=== PATIENT | female | born 1950 | race Native Hawaiian/Other Pacific Islander ===

== ENCOUNTER 2018-10-29 20:33 | Emergency (ER) | payer BC, MEDICARE ==
[2018-10-29 20:34] VITALS: BMI 21.9
[2018-10-29 21:10] VITALS: RESP 18
--- NOTE | 2018-10-29 21:18 | ED PDOC ---
Arrival/HPI - General Chief Complaint: Rib Injury Time Seen by Provider: 10/29/18 20:34 Historian: Patient, Family - History of Present Illness Narrative History of Present Illness (Text): 10/29/18 21:13 68 year old female, with past medical history of Alzheimer's and hyperlipidemia, presents to emergency department accompanied by daughter with complaints of left-sided rib pain following fall this morning. Patient reports experiencing dizziness after walking out of shower this morning and hitting left side of chest onto doorknob. No chest pain prior to fall. Patient denies any loss of consciousness, current dizziness, head impact, or being on blood thinners. Patient denies any shortness of breath, abdominal pain, nausea, vomiting, diarrhea, constipation, dark / bloody stool, or pain anywhere else in the body. Time/Duration: Other (this morning ) Symptom Onset: Gradual Symptom Course: Unchanged Activities at Onset: Light Context: Home Past Medical History - Provider Review Nursing Documentation Reviewed: Yes - Cardiac Hx Cardiac Disorders: Yes - Pulmonary Hx Respiratory Disorders: No - Neurological Hx Neurological Disorder: Yes Hx Dementia: Yes - HEENT Hx HEENT Disorder: No - Renal Hx Renal Disorder: No - Endocrine/Metabolic Hx Endocrine Disorders: No - Hematological/Oncological Hx Blood Disorders: Yes Hx Blood Transfusions: Yes - Integumentary Hx Dermatological Disorder: Yes Other/Comment: SKIN GRAFT L LEG - Musculoskeletal/Rheumatological Hx Musculoskeletal Disorders: Yes - Genitourinary/Gynecological Hx Genitourinary Disorders: No - Psychiatric Hx Psychophysiologic Disorder: Yes Hx Anxiety: Yes Hx Depression: Yes Hx Substance Use: No - Surgical History Other/Comment: SKIN GRAFT, CYST REMOVED FROM BREAST - Anesthesia Hx Anesthesia Reactions: No Hx Malignant Hyperthermia: No Family/Social History - Physician Review Nursing Documentation Reviewed: Yes Family/Social History: Unknown Family HX Smoking Status: Never Smoked Hx Alcohol Use: No Hx Substance Use: No Allergies/Home Meds Allergies/Adverse Reactions: Allergies amoxicillin trihydrate [From Augmentin] Allergy (Severe, Verified 10/29/18 20:40) RASH potassium clavulanate [From Augmentin] Allergy (Severe, Verified 10/29/18 20:40) RASH Home Medications: Home Meds Medication Instructions Recorded Confirmed Donepezil [Aricept] 10 mg PO QPM 06/09/16 10/29/18 Escitalopram [Lexapro] 10 mg PO DAILY 10/29/18 10/29/18 Esomeprazole Magnesium [Nexium] 40 mg PO DAILY 10/29/18 10/29/18 RX: Olanzapine [Zyprexa] 5 mg PO BID 10/29/18 10/29/18 Review of Systems - Physician Review All systems were reviewed & negative as marked: Yes - Review of Systems Constitutional: absent: Fatigue, Weight Change, Fevers Eyes: absent: Vision Changes, Photophobia, Eye Pain ENT: absent: Hearing Changes, Tinnitus, TMJ Pain Respiratory: absent: SOB, Cough Cardiovascular: absent: Chest Pain, Palpitations Gastrointestinal: absent: Abdominal Pain, Diarrhea, Nausea, Vomiting Genitourinary Female: absent: Dysuria, Frequency, Hematuria Musculoskeletal: Other (left-sided rib pain). absent: Back Pain, Neck Pain Skin: absent: Rash Neurological: absent: Headache, Dizziness Psychiatric: absent: Anxiety, Depression Physical Exam Vital Signs Reviewed: Yes Vital Signs Temp Pulse Resp BP Pulse Ox 10/29/18 20:49 98.3 F 62 18 142/63 98 Temperature: Afebrile Blood Pressure: Normal Pulse: Regular Respiratory Rate: Normal Appearance: Positive for: Well-Appearing, Non-Toxic, Comfortable Pain Distress: None Mental Status: Positive for: other (AOX2, baseline per family) - Systems Exam Head: Present: Atraumatic, Normocephalic. No: Tenderness, Laceration Pupils: Present: PERRL. No: Sluggish Extroacular Muscles: Present: EOMI. No: Gaze Palsy Conjunctiva: Present: Normal. No: Injected Ears: Present: Normal Mouth: Present: Moist Mucous Membranes Pharnyx: Present: Normal. No: ERYTHEMA, EXUDATE Nose (External): Present: Atraumatic Nose (Internal): Present: Normal Inspection, No Active Bleeding. No: Purulent Mucous, Septal Hematoma Neck: Present: Normal Range of Motion. No: Meningeal Signs, MIDLINE TENDERNESS Respiratory/Chest: Present: Clear to Auscultation, Good Air Exchange, Tender to Palpation (pinpoint tenderness to left rib. no LUQ abd pain). No: Respiratory Distress, Accessory Muscle Use Cardiovascular: Present: Regular Rate and Rhythm, Normal S1, S2. No: Murmurs Abdomen: Present: Normal Bowel Sounds. No: Tenderness, Distention, Peritoneal Signs, Rebound, McBurney's Point Tender, Rovsing's Sign Present Back: Present: Normal Inspection. No: CVA Tenderness, Midline Tenderness Upper Extremity: Present: Normal Inspection, NORMAL PULSES, Neurovascularly Intact. No: Cyanosis, Edema, Erythema Lower Extremity: Present: Normal Inspection, NORMAL PULSES, Neurovascularly Intact. No: Edema, Erythema Neurological: Present: GCS=15, CN II-XII Intact, Speech Normal, Motor Func Grossly Intact, Normal Cerebellar Funct Skin: Present: Warm, Dry, Normal Color. No: Rashes Psychiatric: Present: Alert, Normal Insight, Normal Concentration, Other (AOx2, her baseline) Medical Decision Making ED Course and Treatment: 10/29/18 21:21 Impression: 68 year old female presents to emergency department for left-sided rib pain following fall this morning. She notes dizziness after walking after the shower described as lightheadedness. No vertigo. No FND on exam. No worsening AMS per f amily. No meningeal signs. No current dizziness. Plan: -- CT Cervical Spine -- CT Head -- EKG -- Labs -- Tylenol -- X-ray left ribs -- Reassess and disposition Prior Visits: Notes and results from previous visits were reviewed. Progress Notes: 10/29/18 22:16 EKG: Ordered, reviewed, and independently interpreted the EKG. Rate : 64 BPM Rhythm : NSR Interpretation : No STEMI 10/29/18 23:08 CT Head, reviewed by radiologist: IMPRESSION: 1. No acute intracranial abnormality. 2. Mild age-appropriate diffuse cerebral/cerebellar atrophy. 3. Mild chronic microvascular disease. 4. Atherosclerotic vascular plaquing within the carotid siphons bilaterally. Electronically signed on Oct 29, 2018 10:11:12 PM EST by: German Fitzpatrick M.D., MBA Certified By [employer] & [employer] Fellowship Trained MRI and CT Specialist CT Cervical Spine, reviewed by radiologist: IMPRESSION: No acute cervical spine abnormality. Electronically signed on Oct 29, 2018 10:50:42 PM EST by: German Fitzpatrick M.D., MBA Certified By [employer]BR & [employer] Fellowship Trained MRI and CT Specialist X-ray left ribs, reviewed by radiologist: IMPRESSION: No visible acute rib fracture. No pneumothorax. Electronically signed on Oct 29, 2018 10:51:49 PM EST by: German Yuz, M.D., WANDER Certified By ABR & [employer] Fellowship Trained MRI and CT Specialist 10/29/18 23:28 Pending CTAP for mildly elevated lipase labs otherwise largely unremarkable. 10/30/18 00:34 CT Abdomen/Pelvis, reviewed by radiologist: IMPRESSION: 1. There are several small ground glass opacities in the right middle lobe. These could represent early infiltrates. Please correlate clinically and if indicated further evaluation could be obtained with dedicated chest CT. 2. Mild dependent atelectasis near both bases. 3. Diffuse fatty infiltration of liver. 4. The liver is enlarged measuring 20 cm craniocaudal. 5. Bladder is moderately distended. Please correlate clinically. 7. There is fecal impaction at the rectum measuring 8.5 x 9.1 cm on series 3, image 82. 8. There is constipation throughout the colon. Electronically signed on Oct 30, 2018 12:32:09 AM EST by: German Fitzpatrick M.D., WANDER Certified By ABR & [employer] Fellowship Trained MRI and CT Specialist 10/30/18 00:53 No urinary complaints. No suprapubic pain. abd remains non-ttp CAP possible, Florquinones / Zpack prolong QT, pt already on QT prolonging agent. Will rx with doxy. Reccomended OTC constipation agents, family agreeable - RAD Interpretation Radiology Orders: 10/29/18 21:00 CERVICAL SPINE W/O CONTRAST [CT] Stat RIBS LEFT & PA CHEST [RAD] Stat 10/29/18 21:11 HEAD W/O CONTRAST [CT] Stat - Medication Orders Current Medication Orders: Discontinued Medications Acetaminophen (Tylenol 325mg Tab) 650 mg PO STAT STA Stop: 10/29/18 21:03 - Scribe Statement The provider has reviewed the documentation as recorded by the Scribe Isaías Munoz All medical record entries made by the Scribe were at my direction and personally dictated by me. I have reviewed the chart and agree that the record accurately reflects my personal performance of the history, physical exam, medical decision making, and the department course for this patient. I have also personally directed, reviewed, and agree with the discharge instructions and disposition. Disposition/Present on Arrival - Present on Arrival Any Indicators Present on Arrival: No History of DVT/PE: No History of Uncontrolled Diabetes: No Urinary Catheter: No History of Decub. Ulcer: No History Surgical Site Infection Following: None - Disposition Have Diagnosis and Disposition been Completed?: Yes Diagnosis: Pneumonia, Constipation Disposition: HOME/ ROUTINE Disposition Time: 00:47 Condition: GOOD Discharge Instructions (ExitCare): Constipation, Adult (DC), Pneumonia, Adult (DC), Community-Acquired Pneumonia in Adults Additional Instructions: RETURN IF PAIN WORSENS OR CHANGES OR NOT IMPROVED WITH PAIN MEDICATIONS. RETURN IF ANY OTHER ISSUES. fOLLOWUP WITH YOUR PRIMARY CARE DOCTOR AND TAKE OVER THE COUNTER CONSTIPATION AGENTS TO HELP WITH YOUR CONSTIPATION. NADEEM GUNTER, thank you for letting us take care of you today. Your provider was Piyush Murry and you were treated for SIDE PAIN, RIB CAGE PROBLEM. The emergency medical care you received today was directed at your acute symptoms. If you were prescribed any medication, please fill it and take as directed. It may take several days for your symptoms to resolve. Return to the Emergency Department if your symptoms worsen, do not improve, or if you have any other problems. Please contact your doctor or call one of the physicians/clinics you have been referred to that are listed on the Patient Visit Information form that is included in your discharge packet. Bring any paperwork you were given at discharge with you along with any medications you are taking to your follow up visit. Our treatment cannot replace ongoing medical care by a primary care provider outside of the emergency department. Thank you for allowing the [facility] team to be part of your care today. If you had an X-Ray or CT scan: A Radiologist will review the ED reading if any change in treatment is needed we will contact you. If you had a blood, urine, or wound culture: It will take several days for the results, if any change in treatment is needed we will contact you. If you had an STI test: It will take 48 hours for the results. Please call after 1 week if you have not heard back. Prescriptions: RX: Doxycycline Hyclate 100 mg PO BID 10 Days #20 capsule Referrals: Jose Miguel Pierre MD [Staff Provider] - Follow up with primary Stephanie Ross MD [Medical Doctor] - Follow up with primary [facility] [Outside] - Follow up with primary [facility] [Outside] - Follow up with primary [facility] [Outside] - Follow up with primary Forms: [employer] [facility] ([place])
[2018-10-29 21:29] LABS: BASO # 0.02 K/mm3 (0.0-2.0); BASO % 0.2 % (0.0-3.0); EOS # 0.2 (0.0-0.7); EOS % 1.8 % (1.5-5.0); HEMOGLOBIN 12.8 g/dL (12.0-16.0); LYMPH # 3.3 (1.2-3.4); LYMPH % 29.7 % (22.0-35.0); MEAN CELL VOLUME 87.8 fl (80.0-105.0); MEAN CORPUSCULAR HEMOGLOBIN 29.5 pg (25.0-35.0); MEAN CORPUSCULAR HGB CONC 33.6 g/dl (31.0-37.0); MEAN PLATELET VOLUME 11.4 fl (7.0-11.0); MONO # 0.7 (0.1-0.6); MONO % 6.1 % (1.0-6.0); RBC 4.34 10^6/uL (3.5-6.1); RED CELL DISTRIBUTION WIDTH 13.9 % (11.5-14.5); WHITE BLOOD COUNT 11.1 10^3/uL (4.5-11.0)
[2018-10-29 21:52] LABS: ALB/GLOB RATIO 1.3 (1.1-1.8); ALBUMIN 4.2 g/dL (3.0-4.8); ALT/SGPT 169 U/L (7-56); AST/SGOT 105 U/L (14-36); BLOOD UREA NITROGEN 22 mg/dL (7-21); CALCIUM 9.6 mg/dL (8.4-10.5); GFR NON-AFRICAN AMERICAN > 60; LIPASE 509 U/L (23-300)
[2018-10-29 22:03] LABS: TROPONIN I < 0.01 ng/mL
[2018-10-29 22:20] VITALS: O2SAT 99
[2018-10-29] MEDS ORDERED: Iohexol 350 MG/100 ML VIAL ONE (22:58)
[2018-10-29] MEDS ORDERED: Sodium Chloride 0.9% 500 ML IV STA (23:21)
[2018-10-30 01:14] VITALS: BP 130/68; PULSE 64; TEMP 97.9
--- NOTE | 2018-10-30 08:47 | CARD ---
APPROVED REPORT Date of service: 10/29/2018 EKG Measurement Heart [id number] <Conclusion> Normal sinus rhythm Low voltage QRS Borderline ECG
--- NOTE | 2018-10-30 10:58 | CT ---
Date of service: 10/29/2018 PROCEDURE: CT HEAD WITHOUT CONTRAST. HISTORY: Status post fall COMPARISON: No prior study available for comparison. TECHNIQUE: Axial computed tomography images were obtained through the head/brain without intravenous contrast. Radiation dose: Total exam DLP = 828.08 mGy-cm. This CT exam was performed using one or more of the following dose reduction techniques: Automated exposure control, adjustment of the mA and/or kV according to patient size, and/or use of iterative reconstruction technique. FINDINGS: HEMORRHAGE: No acute parenchymal, subarachnoid or extra-axial hemorrhage. BRAIN: There appears to be some minimal diffuse/confluent chronic periventricular white matter ischemic changes extending peripherally into the deep white matter both cerebral hemispheres.. Note that the possibility of a small hyperacute infarct cannot be excluded on this exam. No obvious parenchymal nor extra-axial masses or collections. Moderate generalized volume loss. Minimal vascular calcifications both carotid siphons. VENTRICLES: Unremarkable. No hydrocephalus. CALVARIUM: Unremarkable. PARANASAL SINUSES: Unremarkable as visualized. No significant inflammatory changes. MASTOID AIR CELLS: Unremarkable as visualized. No inflammatory changes. OTHER FINDINGS: None. IMPRESSION: No acute intracranial hemorrhage. Suspect minimal chronic periventricular white matter ischemic changes. Moderate generalized volume loss. .
--- NOTE | 2018-10-30 11:54 | CT ---
Date of service: 10/29/2018 PROCEDURE: CT Cervical Spine without contrast HISTORY: Status post fall COMPARISON: None available. TECHNIQUE: Axial computed tomography images were obtained of the cervical spine without the use of intravenous contrast. Coronal and sagittal reformatted images were created and reviewed. Radiation dose: Total exam DLP = 394.35 mGy-cm. This CT exam was performed using one or more of the following dose reduction techniques: Automated exposure control, adjustment of the mA and/or kV according to patient size, and/or use of iterative reconstruction technique. FINDINGS: VERTEBRAE: No acute compression fractures no retropulsed fragments. Vertebral bodies exhibit normal stature. Vertebral bodies and facets normally aligned. The DISCS/SPINAL CANAL/NEURAL FORAMINA: Disc space heights are relatively maintained. There are no disc herniation or significant disc bulge. No extra-axial collections are identified. The overall central bony canal and exit foramina appear adequate despite mild variable hypertrophic facet joint changes and minimal degenerative squaring of the uncovertebral joints. The PARASPINAL SOFT TISSUES: Unremarkable. OTHER FINDINGS: Lung apices clear. IMPRESSION: No acute fractures. Minor multilevel degenerative spondylosis as described.
--- NOTE | 2018-10-30 15:04 | CT ---
Date of service: 10/29/2018 PROCEDURE: CT Abdomen and Pelvis.. HISTORY: Mildly elevated lipase, L rib pain COMPARISON: No correlation made with prior abdominal ultrasound dated 08/19/2014. TECHNIQUE: Contiguous axial images of the abdomen and pelvis. Oral contrast was administered. No IV contrast given. Coronal and Sagittal reformats generated. Radiation dose: Total exam DLP = 570.77 mGy-cm. This CT exam was performed using one or more of the following dose reduction techniques: Automated exposure control, adjustment of the mA and/or kV according to patient size, and/or use of iterative reconstruction technique. FINDINGS: LOWER THORAX: Unremarkable. Mild passive/dependent type atelectasis seen both posterior lower lung zones. In addition, there also appear to be underlying centrilobular emphysematous changes. There are a few vague patchy opacities seen in the middle lobe region and probably discrete atelectasis in the left lingular region and left lung base.. No effusion. No evidence of basilar pneumothorax. Heart size within range of normal. No significant pericardial effusion small hiatal hernia. LIVER: Liver is enlarged measuring over 20 cm in CC dimension. Moderate fatty hepatic infiltration. No obvious hepatic masses or collections identified.. Portal and splenic veins are opacified GALLBLADDER AND BILE DUCTS: Gallbladder is physiologically distended. No evidence of intraluminal gallbladder calculi. PANCREAS: Pancreas appears grossly unremarkable without masses collections or calcifications. No significant pancreatic ductal dilatation. SPLEEN: Spleen exhibits relatively normal size and attenuation pattern without mass collection or calcification. ADRENALS: There are no adrenal lesions. KIDNEYS AND URETERS: Kidneys demonstrate symmetric nephrograms. No evidence of nephrolithiasis or hydronephrosis. BLADDER: Urinary bladder is markedly distended. REPRODUCTIVE: Uterus is compressed by the the markedly distended distended stool-filled rectum APPENDIX: Appendix is not seen with complete certainty on this study however no obvious inflammatory changes right lower quadrant of the abdomen. BOWEL: Evaluation of the bowel is somewhat limited due to the lack of oral contrast material. The stomach is incompletely distended with thick-walled appearance.. Multiple minimally distended loops of small bowel are present some of which contain fluid and fecalized content consistent with stasis. There is a moderately large amount of stool seen throughout most of the colon with marked fecal impaction with distended rectum. PERITONEUM: Unremarkable. No fluid collection. No free air. LYMPH NODES: Unremarkable. No enlarged lymph nodes. VASCULATURE: Unremarkable. No aortic aneurysm. Minimal aortic atherosclerotic calcification or mural plaque present. BONES: Mild multilevel degenerative spondylosis of the lower thoracic and lumbar spine. OTHER FINDINGS: None. IMPRESSION: Hepatomegaly with marked fatty hepatic infiltration. Findings consistent with fecal retention/constipation as well as fecal impaction. Markedly distended urinary bladder; rule out urinary retention. Patchy opacity seen in the region the right middle lobe rule out developing early pneumonia..
--- NOTE | 2018-10-30 17:11 | RAD ---
Date of service: 10/29/2018 PROCEDURE: Radiographs of the Chest and Left Ribs. HISTORY: L sided chest pain after fall. COMPARISON: Comparison made with chest radiographs dated 06/11/2015. TECHNIQUE: Frontal radiograph of the chest and multiple oblique radiographs of the left ribs were obtained. FINDINGS: LEFT RIBS: No fracture or focal lesion visualized. LUNGS: Poor inspiration with low lung volumes crowded bronchovascular markings and mild bibasilar atelectasis. Increased and increased and coarsened interstitial markings which may in part be due to low lung volumes however sequela of reactive/inflammatory airway disease and viral illness not excluded. PLEURA: No pneumothorax or pleural fluid. CARDIOVASCULAR: Normal cardiac size. No pulmonary vascular congestion. No aortic atherosclerotic calcification present OTHER FINDINGS: None. IMPRESSION: Unremarkable radiographs of the chest and left ribs. No definitive radiographic evidence of acute left-sided rib fracture... If symptoms persist or occult fracture suspected clinically recommend follow-up CT scan of the chest.
== END 2018-10-30 01:07 | disposition home or self-care (01) ==
LOC: ED 20:33
DX: J18.9 Pneumonia, unspecified organism (principal); K59.00 Constipation, unspecified; G30.9 Alzheimer's disease, unspecified; F02.80 Dementia in other diseases classified elsewhere, unspecified severity, without behavioral disturbance, psychotic disturbance, mood disturbance, and anxiety; E78.5 Hyperlipidemia, unspecified; F41.9 Anxiety disorder, unspecified
CPT/HCPCS: 70450; 71101; 72125; 74177; 80053; 82550; 83690; 84484; 85025; 93005; 99285; J7030; Q9967